=== PATIENT | female | born 1970 | race Caucasian/White ===

== ENCOUNTER 2019-04-15 14:20 | Emergency (ER) | payer SELFPAY ==
[~2019-04-15] VITALS: Ht 165.1 cm; Wt 61.2 kg
[2019-04-15 14:39] VITALS: BP 145/82
[2019-04-15] MEDS ORDERED: KETOROLAC 30 MG/ML VIAL. IM ONE (15:15)
[2019-04-15] MEDS ORDERED: KETOROLAC 60 MG/2 ML VIAL. IM ONE (15:15)
[2019-04-15] MEDS ORDERED: KETOROLAC 30 MG/ML VIAL. ONE (15:16)
[2019-04-15] MEDS ORDERED: ORPH100T PO (15:21)
--- NOTE | 2019-04-15 15:21 | PHYS DOC ---
Past Medical History Past Medical History: No Pertinent History Alcohol Use: None Drug Use: None Adult General Chief Complaint Chief Complaint: BACK PAIN OR INJURY HPI HPI Patient is a 48 year old female who presents with lower back pain started last night. Patient reports she had bent over to slate picker her phone, started have some pain in her back, which has continued throughout today. States she did not hear a pop in her back, does not have any paresthesias in her legs or arms. Does state pain is mostly midline. Denies falling. Denies loss of bowel or bladder. Denies shortness of breath. Denies change in bladder habits. Does report pain is worse when rotating torso. Does report some discomfort worsened on palpation. Does report she has been trying some ibuprofen with little relief. And also tried taking a warm bath which seemed to help a little bit. Review of Systems Review of Systems Constitutional: Denies fever or chills [] Respiratory: Denies cough or shortness of breath [] Cardiovascular: No additional information not addressed in HPI [] GI: Denies abdominal pain, nausea, vomiting, bloody stools or diarrhea [] : Denies dysuria or hematuria [] Musculoskeletal: Complains of back pain, denies joint pain [] Integument: Denies rash or skin lesions [] Neurologic: Denies headache, focal weakness or sensory changes [] Endocrine: Denies polyuria or polydipsia [] All other systems were reviewed and found to be within normal limits, except as documented in this note. Physical Exam Physical Exam Constitutional: Well developed, well nourished, no acute distress, non-toxic appearance. [] HENT: Normocephalic, atraumatic, bilateral external ears normal, oropharynx moist, no oral exudates, nose normal. [] Eyes: PERRLA, EOMI, conjunctiva normal, no discharge. [] Neck: Normal range of motion, no tenderness, supple, no stridor. [] Cardiovascular:Heart rate regular rhythm, no murmur [] Lungs & Thorax: Bilateral breath sounds clear to auscultation. . [] Abdomen: Bowel sounds normal, soft, no tenderness, no masses, no pulsatile masses. [] Skin: Warm, dry, no erythema, no rash. [] Back: No tenderness, no CVA tenderness. Minimal tenderness to lumbar region and back noted, no trauma noted, no bruising noted, no deformity palpated, no step- offs noted to spinal processes, discomfort mostly muscular bilaterally to spine[] Extremities: No tenderness, no cyanosis, no clubbing, ROM intact, no edema. [] Neurologic: Alert and oriented X 3, normal motor function, normal sensory function, no focal deficits noted. [] Psychologic: Affect normal, judgement normal, mood normal. [] Current Patient Data Vital Signs Vital Signs Date Time Temp Pulse Resp B/P (MAP) Pulse Ox O2 Delivery O2 Flow Rate FiO2 04/15/19 14:39 98.3 90 18 145/82 (103) 98 Room Air 98.3 EKG EKG [] Radiology/Procedures Radiology/Procedures [] Course & Med Decision Making Course & Med Decision Making Pertinent Labs and Imaging studies reviewed. (See chart for details) [Discussed findings with patient being consistent with muscle strain and. Advised patient to continue taking [id number] NSAIDs for discomfort, we'll provide most relaxer prescription, advised patient to continue to take at night and use caution as it can be sedating. Discussed offered x-rays to determine any lower backache issues, patient states she does not feel it is necessary at this time. Advised patient to follow up with her primary care provider if she does continue to have back pain for imaging if needed.] Dragon Disclaimer Dragon Disclaimer This electronic medical record was generated, in whole or in part, using a voice recognition dictation system. Departure Departure Impression: Primary Impression: Lower back pain Additional Impression: Spasm of muscle, back Disposition: 01 HOME, SELF-CARE Condition: GOOD Referrals: MERON RICHARDS DO (PCP) Patient Instructions: Back Pain, Adult, [id number] Additional Instructions: As we discussed to take the muscle relaxers when you're at home. They may make you sleepy, so be cautious a few to take them before tomorrow. He may continue to use ice or warm free her lower back. He may continue taking Tylenol or ibuprofen for her back. Please do not take any ibuprofen until 10 PM tonight. Follow up with her primary care provider if any other concerns. Try to bend over with your legs and avoid straining your back, it may take a week or so to fully have your back healed. Scripts Orphenadrine Citrate (ORPHENADRINE CITRATE) 100 Mg Tablet.er 100 MG PO BID for back pain, #10 TAB.SR Prov: HERB HARRISON APRN 04/15/19 Problem Qualifiers HERB HARRISON APRN April 15, 2019 15:21
== END 2019-04-15 15:23 | disposition home or self-care (01) ==
LOC: ER 14:20
DX: M62.830 Muscle spasm of back (principal)
CPT/HCPCS: 96372; 99283; J1885

== ENCOUNTER 2019-12-09 10:54 | Emergency (ER) | payer SELFPAY ==
[~2019-12-09] VITALS: Ht 165.1 cm; Wt 59.0 kg
[~2019-12-09 10:54] MED LIST: ORPH100T PO
[2019-12-09 11:21] LABS: BILIRUBIN,URINE NEGATIVE (NEG); CLARITY,URINE CLEAR; COLOR,URINE YELLOW; NITRITE,URINE NEGATIVE (NEG); PH,URINE 5.5; PROTEIN,URINE 100 mg/dL (NEG-TRACE); UROBILINOGEN,URINE 0.2 mg/dL (0.2 mg/dL)
[2019-12-09 11:23] LABS: SQUAMOUS EPITHELIAL CELL,UR FEW /LPF
[2019-12-09 11:26] LABS: BACTERIA,URINE MODERATE /HPF (0-FEW)
--- NOTE | 2019-12-09 12:53 | RAD ---
Examination: CT of the abdomen pelvis without contrast HISTORY: History of right-sided flank pain COMPARISON: None available TECHNIQUE: Axial CT images of the abdomen pelvis were performed without contrast. Coronal and sagittal reformats are performed. Exposure: One or more of the following individualized dose reduction techniques were utilized for this examination: 1. Automated exposure control 2. Adjustment of the mA and/or kV according to patient size 3. Use of iterative reconstruction technique FINDINGS: Bibasilar lung emphysematous changes identified. No evidence of free air identified in the abdomen. The evaluation of the solid organs is limited due to lack of IV contrast. The evaluation of bowel is limited due to lack of oral contrast. The visualized noncontrasted liver, spleen, adrenals grossly appears unremarkable. Gallbladder is mildly distended. The stomach is mildly distended. The visualized pancreas grossly appears unremarkable. Small bowel is nondilated. The appendix is normal. Feces and gas noted in the colon. Punctate intrarenal collecting system calculus identified in the right kidney with largest measuring 4 mm. Mild right-sided hydronephrosis and hydroureter identified. There is a 5 mm calculus identified in the right ureter at its mid and distal one third junction. Urinary bladder is mildly distended. Mild fat stranding identified about the urinary bladder. Mild degenerative changes lumbar spine. IMPRESSION: 1. 5 mm calculus identified in the right ureter at its mid and distal one third junction causing mild right-sided hydronephrosis. 2. Punctate intrarenal calculi right kidney. 3. Mild fat stranding identified about the urinary bladder. Correlate for urinary tract infection. Electronically signed by: Blaze Cobb MD (12/09/2019 12:50 PM) [place] [id number]
[2019-12-09] MEDS: KETOROLAC 60 MG/2 ML VIAL. IM ONE (13:34)
[2019-12-09] MEDS: ONDANSETRON ODT 4 MG TAB.RAPDIS. PO ONE (13:34)
[2019-12-09] MEDS: TAMSULOSIN 0.4 MG CAP.ER.24H. PO ONE (13:34)
[2019-12-09] MEDS: cefTRIAXone IM 1 GM VIAL IM ONE (13:35)
[2019-12-09] MEDS: LIDOCAINE 1% PF 2 ML VIAL. INJ ONE (13:35)
[2019-12-09] MEDS ORDERED: ONDA4TAB7 PO (13:53)
[2019-12-09] MEDS ORDERED: TAMS0.4C97 PO (13:53)
[2019-12-09] MEDS ORDERED: CIPR500T94 PO (13:53)
[2019-12-09] MEDS ORDERED: HYDR-3164 PO (13:53)
--- NOTE | 2019-12-09 13:53 | PHYS DOC ---
Past Medical History Past Medical History: No Pertinent History Alcohol Use: None Drug Use: None Adult General Chief Complaint Chief Complaint: PAIN ON URINATION HPI HPI Patient is a 49 year old female who presents to the ED today complaining of mild intermittent episodes of right flank pain with urinary hesitancy that has been going on for 3 days. Patient denies any nausea, vomiting. Denies any fever. Denies any hematuria. She states she has history of UTIs. Review of Systems Review of Systems Constitutional: Denies fever or chills [] Eyes: Denies change in visual acuity, redness, or eye pain [] HENT: Denies nasal congestion or sore throat [] Respiratory: Denies cough or shortness of breath [] Cardiovascular: No additional information not addressed in HPI [] GI: Denies abdominal pain, nausea, vomiting, bloody stools or diarrhea [] : Reports right flank pain, urinary hesitancy denies hematuria Musculoskeletal: Denies back pain or joint pain [] Integument: Denies rash or skin lesions [] Neurologic: Denies headache, focal weakness or sensory changes [] All other systems were reviewed and found to be within normal limits, except as documented in this note. Current Medications Current Medications Current Medications Medications (Trade) Dose Ordered Sig/Laura Start Time Stop Time Status Last Admin Dose Admin Ceftriaxone Sodium (Rocephin Im) 1 gm 1X ONCE 12/09/19 13:15 12/09/19 13:23 DC 12/09/19 13:35 1 GM Ketorolac Tromethamine (Toradol Im) 60 mg 1X ONCE 12/09/19 13:15 12/09/19 13:23 DC 12/09/19 13:34 60 MG Lidocaine HCl (Xylocaine-Mpf 1% 2ml Vial) 2 ml 1X ONCE 12/09/19 13:15 12/09/19 13:23 DC 12/09/19 13:35 2 ML Ondansetron HCl (Zofran Odt) 4 mg 1X ONCE 12/09/19 13:15 12/09/19 13:23 DC 12/09/19 13:34 4 MG Tamsulosin HCl (Flomax) 0.4 mg 1X ONCE 12/09/19 13:15 12/09/19 13:23 DC 12/09/19 13:34 0.4 MG Allergies Allergies Allergies Coded Allergies Type Severity Reaction Last Updated Verified No Known Drug Allergies 04/15/19 No Physical Exam Physical Exam Constitutional: Well developed, well nourished, no acute distress, non-toxic appearance. [] HENT: Normocephalic, atraumatic, bilateral external ears normal, oropharynx moist, no oral exudates, nose normal. [] Eyes: PERRLA, EOMI, conjunctiva normal, no discharge. [] Neck: Normal range of motion, no tenderness, supple, no stridor. [] Cardiovascular:Heart rate regular rhythm, no murmur [] Lungs & Thorax: Bilateral breath sounds clear to auscultation [] Abdomen: Bowel sounds normal, soft, no tenderness, no masses, no pulsatile masses. [] Skin: Warm, dry, no erythema, no rash. [] Back: No tenderness, mild right CVA tenderness. [] Extremities: No tenderness, no cyanosis, no clubbing, ROM intact, no edema. [] Neurologic: Alert and oriented X 3, normal motor function, normal sensory function, no focal deficits noted. [] Psychologic: Affect normal, judgement normal, mood normal. [] Current Patient Data Vital Signs Vital Signs Date Time Temp Pulse Resp B/P (MAP) Pulse Ox O2 Delivery O2 Flow Rate FiO2 12/09/19 11:10 97.9 89 18 142/78 (99) 98 Room Air 97.9 Lab Values Laboratory Tests Test 12/09/19 11:13 Urine Collection Type Unknown Urine Color Yellow Urine Clarity Clear Urine pH 5.5 Urine Specific [place] 1.025 Urine Protein 100 mg/dL (NEG-TRACE) Urine Glucose (UA) Negative mg/dL (NEG) Urine Ketones (Stick) Negative mg/dL (NEG) Urine Blood Moderate (NEG) Urine Nitrite Negative (NEG) Urine Bilirubin Negative (NEG) Urine Urobilinogen Dipstick 0.2 mg/dL (0.2 mg/dL) Urine Leukocyte Esterase Trace (NEG) Urine RBC 11-20 /HPF (0-2) Urine WBC 5-10 /HPF (0-4) Urine Squamous Epithelial Cells Few /LPF Urine Bacteria Moderate /HPF (0-FEW) Urine Mucus Mod /LPF EKG EKG [] Radiology/Procedures Radiology/Procedures []PROCEDURE: CT ABDOMEN PELVIS WO CONTRAST Examination: CT of the abdomen pelvis without contrast HISTORY: History of right-sided flank pain COMPARISON: None available TECHNIQUE: Axial CT images of the abdomen pelvis were performed without contrast. Coronal and sagittal reformats are performed. Exposure: One or more of the following individualized dose reduction techniques were utilized for this examination: 1. Automated exposure control 2. Adjustment of the mA and/or kV according to patient size 3. Use of iterative reconstruction technique FINDINGS: Bibasilar lung emphysematous changes identified. No evidence of free air identified in the abdomen. The evaluation of the solid organs is limited due to lack of IV contrast. The evaluation of bowel is limited due to lack of oral contrast. The visualized noncontrasted liver, spleen, adrenals grossly appears unremarkable. Gallbladder is mildly distended. The stomach is mildly distended. The visualized pancreas grossly appears unremarkable. Small bowel is nondilated. The appendix is normal. Feces and gas noted in the colon. Punctate intrarenal collecting system calculus identified in the right kidney with largest measuring 4 mm. Mild right-sided hydronephrosis and hydroureter identified. There is a 5 mm calculus identified in the right ureter at its mid and distal one third junction. Urinary bladder is mildly distended. Mild fat stranding identified about the urinary bladder. Mild degenerative changes lumbar spine. IMPRESSION: 1. 5 mm calculus identified in the right ureter at its mid and distal one third junction causing mild right-sided hydronephrosis. 2. Punctate intrarenal calculi right kidney. 3. Mild fat stranding identified about the urinary bladder. Correlate for urinary tract infection. Electronically signed by: Blaze Cobb MD (12/09/2019 12:50 PM) [facility] DICTATED and SIGNED BY: BLAZE COBB MD DATE: 12/09/19 1250 Course & Med Decision Making Course & Med Decision Making Pertinent Labs and Imaging studies reviewed. (See chart for details) This is a 49-year-old female patient presenting to the ED today complaining of right flank pain and urinary hesitancy for 3 days. Urine analysis is negative for nitrites, and opted for trace amount of leukocytes, WBCs 5-10 also noted for moderate amount of blood. CT of the abdomen and pelvic was done to rule out kidney stone, CT noted 5 mm calculus identified in the right ureter at its mid and distal one third junction causing mild right-sided hydronephrosis.Punctate intrarenal calculi right kidney.Mild fat stranding identified about the urinary bladder. Correlate for urinary tract infection. Discussed with patient this hospital does not have a urologist. She will have to be transferred to a hospital with urology for admission. Patient preferred outpatient follow-up. She requested to be started on antibiotics and Flomax in the ED and be given prescriptions for home use. She was given Rocephin IM, flomax and Toradol in the Ed. She was discharged with Cipro, Flomax, norco and naproxen and provided Urology for f/u Dragon Disclaimer Dragon Disclaimer This electronic medical record was generated, in whole or in part, using a voice recognition dictation system. Departure Departure Impression: Primary Impression: Pyelonephritis Additional Impression: Kidney stones Disposition: HOME, SELF-CARE Condition: STABLE Referrals: NO PCP (PCP) follow up with a urologist of you choice. Patient Instructions: Kidney Stones, [id number], Pyelonephritis, Adult, [id number] Additional Instructions: You have kidney stones and kidney infection. We put on medications especially antibiotics. Ensure you complete them. Please follow up with a urologist of your choice. [facility] has one you can call them and set up a follow up appointment. Scripts Hydrocodone/Apap 5-325 (NORCO 5-325 TABLET) 1 Each Tablet 1 TAB PO Q6HRS PRN for PAIN, #20 TAB Prov: ANDREA ANG APRN 12/09/19 Tamsulosin Hcl (FLOMAX) 0.4 Mg Cap.er.24h 1 CAP PO DAILY, #7 CAP 0 Refills Prov: ANDREA ANG APRN 12/09/19 Ondansetron Hcl (ZOFRAN) 4 Mg Tablet 1 TAB PO Q6HRS, #20 TAB Prov: ANDREA ANG APRN 12/09/19 Ciprofloxacin Hcl (CIPRO) 500 Mg Tablet 1 TAB PO BID for 7 Days, #14 TAB 0 Refills Prov: ANDREA ANG APRN 12/09/19 Problem Qualifiers ANDREA ANG APRN Dec 09, 2019 13:53
[2019-12-09 14:05] VITALS: BP 163/91
== END 2019-12-09 14:05 | disposition home or self-care (01) ==
LOC: ER 10:54
DX: N10 Acute pyelonephritis (principal); N20.0 Calculus of kidney; R39.11 Hesitancy of micturition
CPT/HCPCS: 74176; 81001; 87086; 96372; 99285; J0696; J1885; Q0162

== ENCOUNTER 2020-05-02 08:21 | Emergency (ER) | payer SELFPAY ==
[~2020-05-02] VITALS: Ht 165.1 cm; Wt 70.0 kg
[~2020-05-02 08:21] MED LIST changes: +CIPR500T94 PO; +HYDR-3164 PO; +ONDA4TAB7 PO; +TAMS0.4C97 PO
[2020-05-02 08:30] VITALS: BP 142/79
[2020-05-02 08:43] LABS: BILIRUBIN,URINE NEGATIVE (NEG); CLARITY,URINE CLEAR; COLOR,URINE YELLOW; NITRITE,URINE NEGATIVE (NEG); PROTEIN,URINE NEGATIVE (NEG-TRACE); UROBILINOGEN,URINE 0.2 mg/dL (0.2 mg/dL)
[2020-05-02 08:50] LABS: SQUAMOUS EPITHELIAL CELL,UR OCC /LPF
[2020-05-02 08:51] LABS: BACTERIA,URINE FEW /HPF (0-FEW); WBC,URINE 20-40 /HPF (0-4)
[2020-05-02] MEDS ORDERED: KETOROLAC 30 MG/ML VIAL. IM ONE (09:30)
[2020-05-02] MEDS ORDERED: PHENAZOPYRIDINE 200 MG TABLET. PO ONE (09:30)
[2020-05-02] MEDS ORDERED: CEPHALEXIN 250 MG CAPSULE. PO ONE (09:30)
[2020-05-02] MEDS ORDERED: CEPH-264 PO (09:33)
[2020-05-02] MEDS ORDERED: PHEN-318 PO (09:33)
--- NOTE | 2020-05-02 09:33 | PHYS DOC ---
Past Medical History Past Medical History: Kidney Stone Past Surgical History: No Surgical History Smoking Status: Current Every Day Smoker Alcohol Use: None Drug Use: None General Adult EDM: Chief Complaint: PAIN ON URINATION HPI: HPI: Patient is a 49 year old [f__sex] who presents with [] Review of Systems: Review of Systems: Constitutional: Denies fever or chills. [] Eyes: Denies change in visual acuity. [] HENT: Denies nasal congestion or sore throat. [] Respiratory: Denies cough or shortness of breath. [] Cardiovascular: Denies chest pain or edema. [] GI: Denies abdominal pain, nausea, vomiting, bloody stools or diarrhea. [] : Denies dysuria. [] Musculoskeletal: Denies back pain or joint pain. [] Integument: Denies rash. [] Neurologic: Denies headache, focal weakness or sensory changes. [] Endocrine: Denies polyuria or polydipsia. [] Lymphatic: Denies swollen glands. [] Psychiatric: Denies depression or anxiety. [] Heart Score: Risk Factors: Risk Factors: DM, Current or recent (<one month) smoker, HTN, HLP, family history of CAD, obesity. Risk Scores: Score 0 - 3: 2.5% MACE over next 6 weeks - Discharge Home Score 4 - 6: 20.3% MACE over next 6 weeks - Admit for Clinical Observation Score 7 - 10: 72.7% MACE over next 6 weeks - Early Invasive Strategies Current Medications: Current Medications Medications (Trade) Dose Ordered Sig/Laura Start Time Stop Time Status Last Admin Dose Admin Cephalexin HCl (Keflex) 500 mg 1X ONCE 05/02/20 09:30 05/02/20 09:31 DC Ketorolac Tromethamine (Toradol 30mg Vial) 30 mg 1X ONCE 05/02/20 09:30 05/02/20 09:31 DC Phenazopyridine HCl (Pyridium) 200 mg 1X ONCE 05/02/20 09:30 05/02/20 09:31 DC Allergies: Allergies: Allergies Coded Allergies Type Severity Reaction Last Updated Verified No Known Drug Allergies 04/15/19 No Physical Exam: PE: Constitutional: Well developed, well nourished, no acute distress, non-toxic appearance. [] HENT: Normocephalic, atraumatic, bilateral external ears normal, oropharynx moist, no oral exudates, nose normal. [] Eyes: PERRLA, EOMI, conjunctiva normal, no discharge. [] Neck: Normal range of motion, no tenderness, supple, no stridor. [] Cardiovascular:Heart rate regular rhythm, no murmur [] Lungs & Thorax: Bilateral breath sounds clear to auscultation [] Abdomen: Bowel sounds normal, soft, no tenderness, no masses, no pulsatile masses. [] Skin: Warm, dry, no erythema, no rash. [] Back: No tenderness, no CVA tenderness. [] Extremities: No tenderness, no cyanosis, no clubbing, ROM intact, no edema. [] Neurologic: Alert and oriented X 3, normal motor function, normal sensory function, no focal deficits noted. [] Psychologic: Affect normal, judgement normal, mood normal. [] Current Patient Data: Labs: Laboratory Tests Test 05/02/20 08:30 Urine Collection Type Unknown Urine Color Yellow Urine Clarity Clear Urine pH 6.0 (<5.0-8.0) Urine Specific [place] 1.015 (1.000-1.030) Urine Protein Negative mg/dL (NEG-TRACE) Urine Glucose (UA) Negative mg/dL (NEG) Urine Ketones (Stick) Negative mg/dL (NEG) Urine Blood Trace (NEG) Urine Nitrite Negative (NEG) Urine Bilirubin Negative (NEG) Urine Urobilinogen Dipstick 0.2 mg/dL (0.2 mg/dL) Urine Leukocyte Esterase Large (NEG) Urine RBC 3-5 /HPF (0-2) Urine WBC 20-40 /HPF (0-4) Urine Squamous Epithelial Cells Occ /LPF Urine Bacteria Few /HPF (0-FEW) Vital Signs: Vital Signs Date Time Temp Pulse Resp B/P (MAP) Pulse Ox O2 Delivery O2 Flow Rate FiO2 05/02/20 08:30 97.9 78 18 142/79 (100) 98 Room Air 97.9 EKG: EKG: [] Radiology/Procedures: Radiology/Procedures: [] Course & Med Decision Making: Course & Med Decision Making Pertinent Labs and Imaging studies reviewed. (See chart for details) [] Dragon Disclaimer: Dragon Disclaimer: This electronic medical record was generated, in whole or in part, using a voice recognition dictation system. Departure Departure Impression: Primary Impression: UTI (urinary tract infection) Qualified Codes: N30.01 - Acute cystitis with hematuria Disposition: HOME, SELF-CARE Condition: STABLE Referrals: NO PCP (PCP) Patient Instructions: Urinary Tract Infection, [id number] Scripts Cephalexin (KEFLEX) 500 Mg Capsule 500 MG PO TID for 7 Days, #21 CAP Prov: EFREN BERNARD DO 05/02/20 Phenazopyridine Hcl (PYRIDIUM) 200 Mg Tablet 200 MG PO TID for 2 Days, #6 TAB Prov: EFREN BERNARD DO 05/02/20 Justicifation of Admission Dx: Justifications for Admission: Justification of Admission Dx: N/A EFREN BERNARD DO May 02, 2020 09:33
== END 2020-05-02 10:03 | disposition home or self-care (01) ==
LOC: ER 08:21
DX: N30.01 Acute cystitis with hematuria (principal); F17.200 Nicotine dependence, unspecified, uncomplicated; Z87.442 Personal history of urinary calculi
CPT/HCPCS: 81001; 87086; 96372; 99283; J1885